=== PATIENT | female | born 1985 | race Caucasian/White ===

== ENCOUNTER 2017-05-29 19:16 | Emergency (ER) | payer SELFPAY ==
--- NOTE | 2017-05-29 19:28 | EDM.PDOC ---
ED HPI GENERAL MEDICAL PROBLEM - General Chief Complaint: Body Fluid Exposure Time Seen by Provider: 05/29/17 19:20 Source of Information: Reports: Patient History Limitations: Reports: No Limitations - History of Present Illness INITIAL COMMENTS - FREE TEXT/NARRATIVE: Pt is here today willing and consenting to have her blood drawn for Hepatitis B , C, HIV. A needle that was found in her purse poke an officer who was searching the bag. Pt states he has no history of treatment or diagnosis of any of the above illnesses/disease. Pt says she has been using IV drugs and the needles found may and may or not be used. Onset: Today - Related Data Allergies Allergy/AdvReac Type Severity Reaction Status Date / Time No Known Allergies Allergy Verified 05/29/17 19:21 Home Meds: Home Meds . [No Known Home Meds] 05/29/17 [History] ED ROS GENERAL - Review of Systems Review Of Systems: See Below Constitutional: Reports: No Symptoms ED EXAM, GENERAL - Physical Exam Exam: See Below Exam Limited By: No Limitations General Appearance: Alert, WD/WN, No Apparent Distress Departure - Departure Time of Disposition: 19:30 Disposition: Home, Self-Care 01 Clinical Impression: Patient exposure to body fluids - Discharge Information Instructions: Body Fluid Exposure Information, Needlestick Injury, [id number] Forms: ED Department Discharge
== END 2017-05-29 19:43 | disposition home or self-care (01) ==
LOC: VM.ED 19:16
DX: Z77.21 Contact with and (suspected) exposure to potentially hazardous body fluids (principal)
CPT/HCPCS: 36415; 86703; 86803; 87340; 99281-GF; 99283